=== PATIENT | female | born 1985 | race American Indian/Alaskan Native ===

== ENCOUNTER 2018-05-25 10:53 | Emergency (ER) | payer MEDICAID ==
[2018-05-25] MEDS ORDERED: SUBLIMAZE IV ONE (21:51)
[2018-05-25] MEDS ORDERED: ZOFRAN IV ONE ×2 (21:51→23:20)
[2018-05-25] MEDS ORDERED: NACL 0.9% 1000 ML 1,000 ML IV ONE (21:51)
--- NOTE | 2018-05-25 21:54 | Emergency Department Report ---
ED General Adult HPI - General Chief complaint: Sickle Cell Crisis Stated complaint: SICKEL CELL CRISIS Time Seen by Provider: 05/25/18 21:48 Source: patient Mode of arrival: Ambulatory Limitations: No Limitations - History of Present Illness Initial comments: Patient is 32 years old female with history of sickle cell disease. Patient presented to the ER complaining of bilateral hip pain, low back pain and right arm pain for the last 3 days. Patient denied any chest pain, fever cough or shortness of breath. - Related Data Home Medications Medication Instructions Recorded Confirmed Last Taken Amitriptyline [Elavil] 10 mg PO PRN PRN 10/20/13 12/07/15 12/06/15 Folic Acid [Folvite] 1 mg PO QDAY 10/20/13 12/07/15 12/06/15 Oxycodone HCl/Acetaminophen 1 tab PO Q6H PRN 09/16/14 12/07/15 12/06/15 [Oxycodone-Acetaminophen 10-325] Clopidogrel [Plavix] 75 mg PO QDAY 07/20/15 12/07/15 12/06/15 Warfarin [Coumadin] 5 mg PO QDAY 09/28/15 12/07/15 12/06/15 Previous Rx's Medication Instructions Recorded Last Taken Type oxyCODONE /ACETAMINOPHEN [Percocet 1 tab PO Q6HR PRN #20 tablet 10/12/15 Rx 5/325] Oxycodone HCl/Acetaminophen 1 each PO Q6HR PRN #14 tablet 01/12/16 Unknown Rx [Percocet 7.5/325 mg] Ondansetron [Zofran Odt] 4 mg PO Q8HR PRN #14 tab.rapdis 05/26/18 Unknown Rx oxyCODONE /ACETAMINOPHEN [Percocet 1 tab PO Q6HR PRN #14 tablet 05/26/18 Unknown Rx 5/325] Allergies Allergy/AdvReac Type Severity Reaction Status Date / Time fentanyl Allergy Hives Verified 05/25/18 22:41 fluconazole [From Diflucan] Allergy Hives Verified 05/25/18 22:52 morphine Allergy Hives Verified 05/25/18 11:01 nalbuphine HCl [From Nubain] Allergy Hives Verified 05/25/18 11:01 ED Review of Systems ROS: Stated complaint: SICKEL CELL CRISIS Other details as noted in HPI Comment: All other systems reviewed and negative Constitutional: denies: chills, fever Respiratory: denies: cough, orthopnea, shortness of breath, SOB with exertion, SOB at rest, wheezing Cardiovascular: palpitations. 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 x 2 - Social History Smoking Status: Never Smoker Substance Use Type: None - Medications Home Medications: Home Medications Medication Instructions Recorded Confirmed Last Taken Type Amitriptyline [Elavil] 10 mg PO PRN PRN 10/20/13 12/07/15 12/06/15 History Folic Acid [Folvite] 1 mg PO QDAY 10/20/13 12/07/15 12/06/15 History Oxycodone HCl/Acetaminophen 1 tab PO Q6H PRN 09/16/14 12/07/15 12/06/15 History [Oxycodone-Acetaminophen 10-325] Clopidogrel [Plavix] 75 mg PO QDAY 07/20/15 12/07/15 12/06/15 History Warfarin [Coumadin] 5 mg PO QDAY 09/28/15 12/07/15 12/06/15 History oxyCODONE /ACETAMINOPHEN [Percocet 1 tab PO Q6HR PRN #20 tablet 10/12/1512/06/15 Rx 5/325] Oxycodone HCl/Acetaminophen 1 each PO Q6HR PRN #14 tablet 01/12/16 Unknown Rx [Percocet 7.5/325 mg] Ondansetron [Zofran Odt] 4 mg PO Q8HR PRN #14 tab.rapdis 05/26/18 Unknown Rx oxyCODONE /ACETAMINOPHEN [Percocet 1 tab PO Q6HR PRN #14 tablet 05/26/18 Unknown Rx 5/325] ED Physical Exam - General Limitations: No Limitations General appearance: alert, in no apparent distress - Head Head exam: Present: atraumatic, normocephalic, normal inspection - Eye Eye exam: Present: normal appearance - ENT ENT exam: Present: normal exam, normal orophraynx, mucous membranes moist - Respiratory Respiratory exam: Present: normal lung sounds bilaterally. Absent: respiratory distress, wheezes, rales, rhonchi, stridor, chest wall tenderness, accessory muscle use, decreased breath sounds, prolonged expiratory - Cardiovascular Cardiovascular Exam: Present: regular rate, normal rhythm, normal heart sounds - GI/Abdominal GI/Abdominal exam: Present: soft, normal bowel sounds. Absent: distended, tenderness, guarding, rebound, rigid, organomegaly, mass, bruit, pulsatile mass - Extremities Exam Extremities exam: Present: normal inspection, full ROM, normal capillary refill - Back Exam Back exam: Present: normal inspection, full ROM. Absent: tenderness, CVA tenderness (R), CVA tenderness (L), muscle spasm, paraspinal tenderness, vertebral tenderness, rash noted - Neurological Exam Neurological exam: Present: alert, oriented X3, CN II-XII intact, normal gait - Skin Skin exam: Present: warm, intact, normal color ED Course Vital Signs 05/25/18 05/25/18 05/25/18 11:01 15:23 22:40 Temperature 99.9 F H Pulse Rate 109 H 97 H Respiratory 18 16 16 Rate Blood Pressure 122/63 Blood Pressure [Left] Blood Pressure 127/69 [Right] O2 Sat by Pulse 97 100 Oximetry 05/25/18 05/25/18 05/25/18 22:51 22:52 23:21 Temperature Pulse Rate 87 Respiratory 18 18 18 Rate Blood Pressure Blood Pressure [Left] Blood Pressure 133/53 [Right] O2 Sat by Pulse Oximetry 05/26/18 02:20 Temperature Pulse Rate 82 Respiratory 16 Rate Blood Pressure Blood Pressure 132/84 [Left] Blood Pressure [Right] O2 Sat by Pulse Oximetry ED Medical Decision Making - Lab Data Result diagrams: 05/25/18 22:16 05/25/18 22:16 Critical care attestation.: If time is entered above; I have spent that time in minutes in the direct care of this critically ill patient, excluding procedure time. ED Disposition Clinical Impression: Sickle-cell with crisis, Anemia Disposition: - TO HOME OR SELFCARE Is pt being admited?: No Condition: Stable Instructions: Sickle Cell Crisis (ED) Prescriptions: Ondansetron [Zofran Odt] 4 mg PO Q8HR PRN #14 tab.rapdis PRN Reason: Nausea And Vomiting oxyCODONE /ACETAMINOPHEN [Percocet 5/325] 1 tab PO Q6HR PRN #14 tablet PRN Reason: Pain Referrals: PRIMARY CARE, [Primary Care Provider] - 3-5 Days
[2018-05-25] MEDS ORDERED: BENADRYL ONE (22:11)
[2018-05-25] MEDS ORDERED: TORADOL IV ONE (22:40)
[2018-05-25 23:02] LABS: Basophils # (Auto) 0.1 K/mm3 (0.0-0.1); Basophils % (Auto) 0.5 % (0.0-1.8); Eosinophils # (Auto) 0.1 K/mm3 (0.0-0.4); Eosinophils % (Auto) 0.4 % (0.0-4.3); Hematocrit 22.3 % (30.3-42.9); Hemoglobin 7.7 gm/dl (10.1-14.3); Lymphocytes % (Auto) 15.9 % (13.4-35.0); Mean Corpuscular HGB Conc 35 % (30-34); Mean Corpuscular Hemoglobin 34 pg (28-32); Mean Corpuscular Volume 97 fl (79-97); Monocytes # (Auto) 1.4 K/mm3 (0.0-0.8); Monocytes % (Auto) 11.3 % (0.0-7.3); Platelet Count 390 K/mm3 (140-440); Red Blood Count 2.29 M/mm3 (3.65-5.03); Red Cell Distribution Width 18.4 % (13.2-15.2)
[2018-05-25] MEDS ORDERED: DILAUDID IV ONE (23:20)
[2018-05-25 23:35] LABS: Alanine Aminotransferase 19 units/L (7-56); Albumin 4.8 g/dL (3.9-5); BUN/Creatinine Ratio 20; Blood Urea Nitrogen 6 mg/dL (7-17); Calcium 9.2 mg/dL (8.4-10.2); Hemolysis Index 1
[2018-05-26] MEDS ORDERED: NACL 0.9% 1000 ML 1,000 ML IV ONE (00:25)
[2018-05-26] MEDS ORDERED: BENADRYL IV ONE (00:41)
[2018-05-26] MEDS ORDERED: DILAUDID IV ONE ×2 (00:41→01:52)
[2018-05-26] MEDS ORDERED: FLUSH HEPARIN IV ONE (01:52)
[2018-05-26 02:37] VITALS: BP 132/84
== END 2018-05-26 02:20 | disposition home or self-care (01) ==
LOC: ED 10:53
DX: M25.551 Pain in right hip (principal); M25.552 Pain in left hip; M54.5 Low back pain; D64.9 Anemia, unspecified; D57.00 Hb-SS disease with crisis, unspecified; G43.909 Migraine, unspecified, not intractable, without status migrainosus; J45.909 Unspecified asthma, uncomplicated; Z79.01 Long term (current) use of anticoagulants; Z95.1 Presence of aortocoronary bypass graft; Z90.49 Acquired absence of other specified parts of digestive tract; Z88.6 Allergy status to analgesic agent; Z88.8 Allergy status to other drugs, medicaments and biological substances
CPT/HCPCS: 36415; 80053; 85025; 85045; 96374; 96375; 96376; 99283; J1170; J1200; J1642; J1885; J2405; J3010; J7030; 96361

== ENCOUNTER 2020-05-28 10:05 | Emergency (ER) | payer MEDICAID ==
[2020-05-28] MEDS ORDERED: SODIUM CHLORIDE 0.9% 1000 ML 1,000 ML IV ONE ×2 (12:05)
[2020-05-28] MEDS ORDERED: HYDROmorphone 1 MG/1 ML INJ IV ONE ×3 (12:05→15:41)
[2020-05-28] MEDS ORDERED: ONDANSETRON 4 MG/2 ML INJ IV ONE (12:05)
[2020-05-28] MEDS ORDERED: KETOROLAC 30 MG/1 ML INJ IV ONE (12:05)
[2020-05-28] MEDS ORDERED: diphenhydrAMINE 50 MG/ML VIAL IV ONE (12:05)
--- NOTE | 2020-05-28 12:40 | Emergency Department Report ---
ED General Adult HPI - General Chief complaint: Sickle Cell Crisis Stated complaint: sickle cell crisis Time Seen by Provider: 05/28/20 12:01 Source: patient Mode of arrival: Ambulatory Limitations: No Limitations - History of Present Illness Initial comments: Patient is a 34-year-old F [place] female with a past medical history of sickle cell anemia who is presenting with pain in the bilateral hips lower back and leg. She was here 2 days ago but had not been to our hospital since 2018. Patient states that she did receive fluids and pain management 2 days ago and pain had not decreased significantly but she was not to position to be able to stay in the hospital for admission. Patient states the pain is worsened and is now 8 out of 10 in severity. She denies fevers chills cough cold congestion nausea vomiting. States the pain is aching throbbing in nature and consistent with her sickle cell anemia. On review of the patient's past medical history she does appear to have avascular necrosis of the right hip which likely is also adding to her pain exacerbation. Severity scale (0 -10): 9 - Related Data Home Medications Medication Instructions Recorded Confirmed Last Taken Amitriptyline [Elavil] 10 mg PO PRN PRN 10/20/13 12/07/15 12/06/15 10 mg Folic Acid [Folvite] 1 mg PO QDAY 10/20/13 12/07/15 12/06/15 Oxycodone HCl/Acetaminophen 1 tab PO Q6H PRN 09/16/14 12/07/15 12/06/15 [Oxycodone-Acetaminophen 10-325] Clopidogrel [Plavix] 75 mg PO QDAY 07/20/15 12/07/15 12/06/15 Warfarin [Coumadin] 5 mg PO QDAY 09/28/15 12/07/15 12/06/15 Previous Rx's Medication Instructions Recorded Last Taken Type oxyCODONE /ACETAMINOPHEN [Percocet 1 tab PO Q6HR PRN #20 tablet 10/12/15 12/06/15 Rx 5/325] Oxycodone HCl/Acetaminophen 1 each PO Q6HR PRN #14 tablet 01/12/16 Unknown Rx [Percocet 7.5/325 mg] Ondansetron [Zofran Odt] 4 mg PO Q8HR PRN #14 tab.rapdis 07/09/18 Unknown Rx oxyCODONE /ACETAMINOPHEN [Percocet 1 tab PO Q6HR PRN #14 tablet 05/26/18 Unknown Rx 5/325] HYDROcodone/APAP 5-325 [[place] 1 - 2 each PO Q6HR PRN #10 tablet 05/26/20 Unknown Rx 5/325] Allergies Allergy/AdvReac Type Severity Reaction Status Date / Time fentanyl Allergy Hives Verified 05/25/18 22:41 fluconazole [From Diflucan] Allergy Hives Verified 05/25/18 22:52 morphine Allergy Hives Verified 05/25/18 11:01 nalbuphine HCl [From Nubain] Allergy Hives Verified 05/25/18 11:01 ED Review of Systems ROS: Stated complaint: sickle cell crisis Other details as noted in HPI Comment: All other systems reviewed and negative ED Past Medical Hx - Past Medical History Previous Medical History?: Yes Hx Congestive Heart Failure: No Hx Diabetes: No Hx Sickle Cell Disease: Yes Hx Headaches / Migraines: Yes (migraines) Hx Asthma: Yes Hx COPD: No Hx HIV: No Additional medical history: 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 x 2 - Social History Smoking Status: Never Smoker Substance Use Type: None - Medications Home Medications: Home Medications Medication Instructions Recorded Confirmed Last Taken Type Amitriptyline [Elavil] 10 mg PO PRN PRN 10/20/13 12/07/15 12/06/15 History 10 mg Folic Acid [Folvite] 1 mg PO QDAY 10/20/13 12/07/15 12/06/15 History Oxycodone HCl/Acetaminophen 1 tab PO Q6H PRN 09/16/14 12/07/15 12/06/15 History [Oxycodone-Acetaminophen 10-325] Clopidogrel [Plavix] 75 mg PO QDAY 07/20/15 12/07/15 12/06/15 History Warfarin [Coumadin] 5 mg PO QDAY 09/28/15 12/07/15 12/06/15 History oxyCODONE /ACETAMINOPHEN [Percocet 1 tab PO Q6HR PRN #20 tablet 10/12/15 12/07/15 12/06/15 Rx 5/325] Oxycodone HCl/Acetaminophen 1 each PO Q6HR PRN #14 tablet 01/12/16 Unknown Rx [Percocet 7.5/325 mg] Ondansetron [Zofran Odt] 4 mg PO Q8HR PRN #14 tab.rapdis 05/26/18 Unknown Rx oxyCODONE /ACETAMINOPHEN [Percocet 1 tab PO Q6HR PRN #14 tablet 05/26/18 Unknown Rx 5/325] HYDROcodone/APAP 5-325 [[place] 1 - 2 each PO Q6HR PRN #10 tablet 05/26/20 Unknown Rx 5/325] ED Physical Exam - General Limitations: No Limitations General appearance: alert, in no apparent distress (yet she does appear uncomfortable) - Head Head exam: Present: atraumatic, normocephalic - Eye Eye exam: Present: normal appearance, PERRL, EOMI - ENT ENT exam: Present: mucous membranes moist - Neck Neck exam: Present: normal inspection - Respiratory Respiratory exam: Present: normal lung sounds bilaterally. Absent: respiratory distress, wheezes, rales, rhonchi - Cardiovascular Cardiovascular Exam: Present: regular rate, normal rhythm, normal heart sounds. Absent: systolic murmur, diastolic murmur, rubs, gallop - GI/Abdominal GI/Abdominal exam: Present: soft, normal bowel sounds. Absent: distended, tenderness, guarding - Extremities Exam Extremities exam: Present: normal inspection, full ROM - Back Exam Back exam: Present: normal inspection - Neurological Exam Neurological exam: Present: alert, oriented X3 - Psychiatric Psychiatric exam: Present: normal affect, normal mood - Skin Skin exam: Present: warm, dry, intact, normal color. Absent: rash ED Course Vital Signs 05/28/20 05/28/20 05/28/20 10:10 12:46 13:00 Temperature 99.7 F H Pulse Rate 109 H 80 79 Respiratory 18 15 11 L Rate Blood Pressure 116/62 118/79 113/69 O2 Sat by Pulse 100 98 99 Oximetry 05/28/20 05/28/20 05/28/20 13:03 13:16 14:16 Temperature Pulse Rate 85 73 Respiratory 18 13 16 Rate Blood Pressure 113/69 114/54 O2 Sat by Pulse 98 97 98 Oximetry 05/28/20 14:30 Temperature Pulse Rate 91 H Respiratory 15 Rate Blood Pressure 106/70 O2 Sat by Pulse 98 Oximetry ED Medical Decision Making - Lab Data Result diagrams: 05/28/20 12:35 05/28/20 12:35 Lab Results 05/28/20 05/28/20 Range/Units 12:35 12:35 WBC 7.9 (4.5-11.0) K/mm3 RBC 2.27 L (3.65-5.03) M/mm3 Hgb 8.1 L (10.1-14.3) gm/dl Hct 23.6 L (30.3-42.9) % MCV 104 H (79-97) fl MCH 36 H (28-32) pg MCHC 35 H (30-34) % RDW 16.4 H (13.2-15.2) % Plt Count 251 (140-440) K/mm3 Lymph % (Auto) 24.6 (13.4-35.0) % [place]ward % (Auto) 13.2 H (0.0-7.3) % Eos % (Auto) 0.7 (0.0-4.3) % Baso % (Auto) 0.9 (0.0-1.8) % Lymph # 1.9 (1.2-5.4) K/mm3 Woodward # 1.0 H (0.0-0.8) K/mm3 Eos # 0.1 (0.0-0.4) K/mm3 Baso # 0.1 (0.0-0.1) K/mm3 Seg Neutrophils % 60.6 (40.0-70.0) % Seg Neutrophils # 4.8 (1.8-7.7) K/mm3 Percent Retic 7.16 H (0.78-2.58) % Sodium 139 (137-145) mmol/L Potassium 4.5 (3.6-5.0) mmol/L Chloride 104.1 (98-107) mmol/L Carbon Dioxide 25 (22-30) mmol/L Anion Gap 14 mmol/L BUN 9 (7-17) mg/dL Creatinine 0.4 L (0.7-1.2) mg/dL Estimated GFR > 60 ml/min BUN/Creatinine Ratio 23 % Glucose 85 (65-100) mg/dL Calcium 9.2 (8.4-10.2) mg/dL Total Bilirubin 2.20 H (0.1-1.2) mg/dL AST 21 (5-40) units/L ALT 9 (7-56) units/L Alkaline Phosphatase 66 (35-129) units/L Total Protein 7.6 (6.3-8.2) g/dL Albumin 4.7 (3.9-5) g/dL Albumin/Globulin Ratio 1.6 % - Medical Decision Making Patient is a 34-year-old F [place] female with a past medical history of sickle cell disease who is presenting with pain in the lower back and bilateral hips. Patient after 4 mg of morphine states she still has 8 out of 10 pain he has had no major improvement. Patient be admitted to the hospitalist service. Critical care attestation.: If time is entered above; I have spent that time in minutes in the direct care of this critically ill patient, excluding procedure time. ED Disposition Clinical Impression: Sickle-cell with crisis Disposition: DC-09 OP ADMIT IP TO THIS HOSP Is pt being admited?: Yes Does the pt Need Aspirin: No Condition: Stable Referrals: PRIMARY CARE, [Primary Care Provider] - 3-5 Days Time of Disposition: 14:40
[2020-05-28 13:33] LABS: Basophils # (Auto) 0.1 K/mm3 (0.0-0.1); Basophils % (Auto) 0.9 % (0.0-1.8); Eosinophils # (Auto) 0.1 K/mm3 (0.0-0.4); Eosinophils % (Auto) 0.7 % (0.0-4.3); Hematocrit 23.6 % (30.3-42.9); Hemoglobin 8.1 gm/dl (10.1-14.3); Lymphocytes # (Auto) 1.9 K/mm3 (1.2-5.4); Lymphocytes % (Auto) 24.6 % (13.4-35.0); Mean Corpuscular HGB Conc 35 % (30-34); Mean Corpuscular Volume 104 fl (79-97); Monocytes % (Auto) 13.2 % (0.0-7.3); Platelet Count 251 K/mm3 (140-440); Red Blood Count 2.27 M/mm3 (3.65-5.03); Red Cell Distribution Width 16.4 % (13.2-15.2)
[2020-05-28 13:56] LABS: Alanine Aminotransferase 9 units/L (7-56); Albumin 4.7 g/dL (3.9-5); BUN/Creatinine Ratio 23; Blood Urea Nitrogen 9 mg/dL (7-17); Calcium 9.2 mg/dL (8.4-10.2); Hemolysis Index 4
[2020-05-28 14:35] VITALS: BP 106/70
--- NOTE | 2020-05-28 14:38 | History and Physical Report ---
History of Present Illness Chief complaint: Im hurting all over History of present illness: 34 YO Female with SCD, Chronic Pain Syndrome, Migraine Headache, Asthma presents to ED for evaluation. Patient states that she had experienced generalized pain all over her body over the past 2 days with persistent symptoms over the same timeframe. Patient knowledges decreased oral intake as well as decreased creased free water intake. Patient states that her pain is 810/10, constant, not worsened with exertion, not relieved with rest. Patient reports pain is not relieved with current home pain medication regimen. Patient transported to [facility] via private vehicle for further care and evaluation. Patient seen and evaluated in the emergency department. Lab and imaging studies reviewed. Patient found to have sickle cell disease pain crisis. Patient initiated on IV fluid resuscitation therapy and pain control. Patient denies fever, chills, palpitation, productive cough, skin rash, recent ill contacts, known exposure to COVID-19. All medication listed at the time of admission has been reconciled. Prior admission on 09/14/2015 reviewed. Patient admitted to medical floor due to increased risk of worsening symptoms. Past History Past Medical History: migraines, other (See HPI) Past Surgical History: cholecystectomy, , Other (vascular stent (SVC).) Social history: , lives with family. denies: smoking, alcohol abuse Family history: hypertension, other (SCD) Medications and Allergies Allergies Allergy/AdvReac Type Severity Reaction Status Date / Time fentanyl Allergy Hives Verified 05/25/18 22:41 fluconazole [From Diflucan] Allergy Hives Verified 05/25/18 22:52 morphine Allergy Hives Verified 05/25/18 11:01 nalbuphine HCl [From Nubain] Allergy Hives Verified 05/25/18 11:01 Home Medications Medication Instructions Recorded Confirmed Last Taken Type Amitriptyline [Elavil] 10 mg PO PRN PRN 10/20/13 12/07/15 12/06/15 History 10 mg Folic Acid [Folvite] 1 mg PO QDAY 10/20/13 12/07/15 12/06/15 History Oxycodone HCl/Acetaminophen 1 tab PO Q6H PRN 09/16/14 12/07/15 12/06/15 History [Oxycodone-Acetaminophen 10-325] Clopidogrel [Plavix] 75 mg PO QDAY 07/20/15 12/07/1516 History Warfarin [Coumadin] 5 mg PO QDAY 09/28/15 12/07/15 12/06/15 History oxyCODONE /ACETAMINOPHEN [Percocet 1 tab PO Q6HR PRN #20 tablet 10/12/15 12/07/15 12/06/15 Rx 5/325] Oxycodone HCl/Acetaminophen 1 each PO Q6HR PRN #14 tablet 01/12/16 Unknown Rx [Percocet 7.5/325 mg] Ondansetron [Zofran Odt] 4 mg PO Q8HR PRN #14 tab.rapdis 05/26/18 Unknown Rx oxyCODONE /ACETAMINOPHEN [Percocet 1 tab PO Q6HR PRN #14 tablet 05/26/18 Unknown Rx 5/325] HYDROcodone/APAP 5-325 [[place] 1 - 2 each PO Q6HR PRN #10 tablet 05/26/20 Unknown Rx 5/325] Review of Systems Constitutional: chronic pain, no weight gain, no fever, no chills, no sweats Ears, nose, mouth and throat: no ear discharge, no tinnitis, no decreased hearing Breasts: no change in shape, no swelling, no mass Cardiovascular: no orthopnea, no palpitations, no rapid/irregular heart beat, no edema Respiratory: no cough, no cough with sputum, no excessive sputum, no hemoptysis Gastrointestinal: no nausea, no vomiting, no diarrhea Genitourinary Female: no urinary frequency, no urgency, no stress incontinence Rectal: no incontinence, no bleeding Musculoskeletal: no neck stiffness, no hot joints, no morning stiffness, no muscle weakness, no muscle cramps, no myalgias Integumentary: no rash, no pruritis, no redness, no sores, no wounds Neurological: no paralysis, no weakness, no parathesias, no numbness Psychiatric: no anxiety, no memory loss, no change in sleep habits, no sleep disturbances, no insomnia, no hypersomnia Endocrine: no cold intolerance, no heat intolerance, no polyphagia, no excessive thirst, no polydipsia, no polyuria Hematologic/Lymphatic: no easy bruising, no easy bleeding, no lymphedema Allergic/Immunologic: no urticaria, no allergic rhinitis, no persistent inf ections Exam - Constitutional Vitals: Temp Pulse Resp BP Pulse Ox 99.7 F H 91 H 15 106/70 98 05/28/20 10:10 05/28/20 14:30 05/28/20 14:30 05/28/20 14:30 05/28/20 14:30 General appearance: Present: mild distress - EENT Eyes: Present: PERRL ENT: hearing intact, clear oral mucosa - Neck Neck: Present: supple, normal ROM - Respiratory Respiratory effort: normal Respiratory: bilateral: CTA - Cardiovascular Heart Sounds: Present: S1 & S2. Absent: rub, click - Extremities Extremities: pulses symmetrical, No edema Peripheral Pulses: within normal limits - Abdominal General gastrointestinal: Present: soft, non-tender, non-distended, normal bowel sounds Female genitourinary: Present: normal - Integumentary Integumentary: Present: clear, warm, dry - Musculoskeletal Musculoskeletal: gait normal, strength equal bilaterally - Psychiatric Psychiatric: appropriate mood/affect, intact judgment & insight - Neurologic Neurologic: CNII-XII intact, moves all extremities Results - Labs CBC & Chem 7: 05/28/20 12:35 05/28/20 12:35 Labs: Abnormal lab results 05/28/20 05/28/20 Range/Units 12:35 12:35 RBC 2.27 L (3.65-5.03) M/mm3 Hgb 8.1 L (10.1-14.3) gm/dl Hct 23.6 L (30.3-42.9) % MCV 104 H (79-97) fl MCH 36 H (28-32) pg MCHC 35 H (30-34) % RDW 16.4 H (13.2-15.2) % Mcdowell % (Auto) 13.2 H (0.0-7.3) % [place] # 1.0 H (0.0-0.8) K/mm3 Percent Retic 7.16 H (0.78-2.58) % Creatinine 0.4 L (0.7-1.2) mg/dL Total Bilirubin 2.20 H (0.1-1.2) mg/dL Assessment and Plan - Patient Problems (1) Sickle-cell with crisis Current Visit: Yes Status: Acute Plan to address problem: IV fluid resuscitation therapy, retake count, CBC, CMP, pain control, outpatient hematology follow-up. (2) Chronic pain syndrome Current Visit: Yes Status: Acute Plan to address problem: Pain control, supportive care, (3) Migraine Current Visit: Yes Status: Acute Qualifiers: Intractability: not intractable Plan to address problem: Supportive care, pain control. No headache at this time. (4) DVT prophylaxis Current Visit: Yes Status: Acute Plan to address problem: SCD to bilateral lower extremities while in bed, patient is ambulatory
[2020-05-28] MEDS ORDERED: ACETAMINOPHEN 325 MG TAB PO PRN (14:39)
[2020-05-28] MEDS ORDERED: ALBUTEROL 2.5 MG/3 ML NEBU IH PRN (14:39)
[2020-05-28] MEDS ORDERED: ONDANSETRON 4 MG/2 ML INJ IV PRN (14:39)
[2020-05-28] MEDS ORDERED: ONDANSETRON 4 MG ODT TAB PO PRN (14:41)
[2020-05-28] MEDS ORDERED: AMITRIPTYLINE 10 MG TAB PO PRN (14:41)
[2020-05-28] MEDS ORDERED: HYDROcodone/ACETAMINOPHEN 5-325 MG TAB PO PRN (14:41)
[2020-05-28] MEDS ORDERED: SODIUM CHLORIDE 0.9% 1000 ML 1,000 ML IV SCH ×2 (14:45)
[2020-05-29] MEDS ORDERED: CLOPIDOGREL 75 MG TAB PO SCH (10:00)
[2020-05-29] MEDS ORDERED: FOLIC ACID 1 MG TAB PO SCH (10:00)
[2020-05-29] MEDS ORDERED: WARFARIN 5 MG TAB PO SCH (10:00)
== END 2020-05-28 16:40 | disposition admitted as inpatient to this hospital (09) ==
LOC: ED 10:05 → UNDOADMOB 14:39 → 3A 14:39 → ED 16:40
DX: D57.00 Hb-SS disease with crisis, unspecified (principal); G43.909 Migraine, unspecified, not intractable, without status migrainosus; J45.909 Unspecified asthma, uncomplicated; Z90.49 Acquired absence of other specified parts of digestive tract; Z98.890 Other specified postprocedural states; Z79.899 Other long term (current) drug therapy; Z88.8 Allergy status to other drugs, medicaments and biological substances
CPT/HCPCS: 36415; 80053; 85025; 85045; 96374; 96375; 96376; 99285; J1170; J1200; J1642; J1885; J2405; J7030